=== PATIENT | female | born 1980 | race Caucasian/White ===

== ENCOUNTER → 2016-11-17 | Outpatient (CLI) | payer MEDICAID ==
--- NOTE | 2016-11-17 10:03 | RADRPT ---
PROCEDURE: US OB. CLINICAL INDICATION: size and dates TECHNIQUE: Transabdominal views of the pelvis are available for review. COMPARISON: No prior studies are available for comparison. FINDINGS: There is a single intrauterine gestation with the crown-rump length measuring 1.4 cm, corresponding to a gestational age of 7 weeks and 4 days. The heart rate is noted at 163 bpm. The ovaries are normal in size and echogenicity. Normal Doppler flow is identified in both ovaries. The right ovary measures 3.2 x 1.9 x 1.7 cm. The left ovary measures 2.9 x 2.2 x 2.6 cm. There is a 2.1 cm simple cyst in the left ovary. There is no free fluid. RPTAT: AA IMPRESSION: Single live intrauterine with an estimated gestational age of 7 weeks and 5 days, based on ultrasound measurements. MARIA E based on ultrasound measurements is 07/02/17. 2.1 cm simple cyst in the left ovary. .Gonzales Cerrato MD, MD Date Time Electronically viewed and signed by .Gonzales Cerrato MD, on 11/17/2016 10:03 .S/
== END | disposition home or self-care (01) ==
LOC: U/S 09:25
PROVIDERS: ATTEND Obstetrics & Gynecology
DX: O26.841 Uterine size-date discrepancy, first trimester (principal); O09.521 Supervision of elderly multigravida, first trimester; Z3A.01 Less than 8 weeks gestation of pregnancy
CPT/HCPCS: 76801

== ENCOUNTER 2017-07-02 09:47 | Inpatient (IN) | payer MEDICAID ==
[~2017-07-02] VITALS: Ht 154.9 cm; Wt 66.7 kg
[2017-07-02] VITALS (7 sets, daily range): BP systolic 97–105; BP diastolic 48–65; PULSE 73–92; RESP 17–20; Ht 154.9 cm; Wt 66.7 kg
[2017-07-02] MEDS ORDERED: TERBUTALINE 1 ML ONE (10:26)
--- NOTE | 2017-07-02 10:31 | RADRPT ---
PROCEDURE: US Pelvis. CLINICAL INDICATION: Evaluate the ascending part. TECHNIQUE: Multiple sonographic images of the pelvis were obtained utilizing a transabdominal tech nique. The images were reviewed on a PACS workstation. COMPARISON: 11/17/2016 FINDINGS: There is a single living intrauterine gestation in breech position. There is active cardiac activity 150 beats per minute There is partial visualization of an anterior, bilobed placenta. The cervix i s not well visualized. There is no obvious previa. Amniotic fluid volume was not documented. No f etal measurements made. IMPRESSION: 1. Single living intrauterine gestation in breech position. 2. Anterior, bilobed placenta. RPTAT: [facility] Physician Galilea Date Time Electronically viewed and signed by Physician Galilea on 07/02/2017 10:31 /
[2017-07-02 10:49] LABS: BASOPHILS % 0.2 % (0.0-2.0); EOSINOPHILS # 0.1 10^3/ul (0.0-0.5); EOSINOPHILS % 0.7 % (0.0-7.0); HEMATOCRIT 34.8 % (37.0-47.0); HEMOGLOBIN 12.4 g/dl (12.0-16.0); LYMPHOCYTES # 1.6 10^3/ul (0.8-2.9); LYMPHOCYTES % 11.1 % (15.0-51.0); MEAN CORPUSCULAR HEMOGLOBIN 32.8 pg (29.0-33.0); MEAN CORPUSCULAR HGB CONC 35.6 g/dl (32.0-37.0); MEAN CORPUSCULAR VOLUME 92.1 fl (82.0-101.0); MEAN PLATELET VOLUME 10.3 fl (7.4-10.4); MONOCYTE # 1.1 10^3/ul (0.3-0.9); MONOCYTES % 7.8 % (0.0-11.0); NEUTROPHILS % 79.6 % (39.0-77.0); PLATELET COUNT 199 10^3/UL (140-415); RED BLOOD COUNT 3.78 10^6/ul (4.20-5.40); RED CELL DISTRIBUTION WIDTH 13.7 % (11.5-14.5); WHITE BLOOD COUNT 14.4 10^3/ul (4.8-10.8)
[2017-07-02] MEDS: LACTATED RINGER'S 1,000 ML IV SCH ×3 (10:50→17:47)
[2017-07-02] MEDS ORDERED: OXYTOCIN 30 UNITS/LR 500 ML IV PRN ×3 (11:00→16:00)
[2017-07-02] MEDS ORDERED: MISOPROSTOL 200 MCG TAB PR PRN ×3 (11:00→16:00)
[2017-07-02] MEDS ORDERED: CEFAZOLIN 2 GM/50 ML (PMX) 50 ML IV SCH (11:00)
[2017-07-02] MEDS ORDERED: TERBUTALINE 1 MG/ML INJ SC ONE (11:00)
[2017-07-02] MEDS ORDERED: OXYTOCIN 30 UNITS/LR 500 ML IV SCH (11:00)
[2017-07-02] MEDS ORDERED: METHYLERGONOVINE 0.2 MG INJ IM PRN ×3 (11:00→16:00)
[2017-07-02] MEDS ORDERED: CARBOPROST 250 MCG INJ IM PRN ×3 (11:00→16:00)
[2017-07-02] MEDS ORDERED: ONDANSETRON 4 MG INJ ONE (11:09)
[2017-07-02] MEDS ORDERED: CITRIC ACID/NA CITRATE 30 ML CUP ONE (11:09)
[2017-07-02] MEDS ORDERED: METOCLOPRAMIDE 10 MG INJ ONE (11:38)
[2017-07-02] MEDS ORDERED: FENTAnyl 50 MCG/ML VIAL ONE (11:38)
[2017-07-02] MEDS ORDERED: PHENYLephrine (100 MCG/ML) 5ML SYG ONE (11:38)
[2017-07-02] MEDS ORDERED: morphine SULFATE/PF (10 MG/10 ML) INJ ONE (11:38)
[2017-07-02] MEDS ORDERED: OXYTOCIN 10 UNIT INJ ONE (11:39)
[2017-07-02 11:58] LABS: INR 0.85; PROTIME 11.6 Sec (12.2-14.2); PT RATIO 0.9
[2017-07-02 12:00] LABS: PARTIAL THROMBOPLASTIN TIME 27.9 Sec (25.0-35.0)
[2017-07-02] MEDS ORDERED: TRIMETHOBENZAMIDE 100 MG/ML VIAL IM PRN ×2 (13:30)
[2017-07-02] MEDS ORDERED: NALOXONE (0.4 MG/ML) INJ IV PRN (13:30)
[2017-07-02] MEDS ORDERED: NALBUPHINE HCL (10 MG/1 ML) INJ IV PRN (13:30)
[2017-07-02] MEDS ORDERED: morphine 4 MG/ML VIAL IV PRN (13:30)
[2017-07-02] MEDS ORDERED: DIPHENHYDRAMINE 50 MG INJ IV PRN ×2 (13:30)
[2017-07-02] MEDS ORDERED: EPHEDrine SULFATE 50 MG/5 ML SYG IV PRN (13:30)
[2017-07-02] MEDS ORDERED: morphine 2 MG INJ IV PRN (13:30)
[2017-07-02] MEDS ORDERED: MIDAZOLAM 1 MG/ML 2 ML INJ IV PRN (13:30)
[2017-07-02] MEDS ORDERED: FENTAnyl 50 MCG/ML VIAL IV PRN ×3 (13:30)
[2017-07-02] MEDS ORDERED: IPRATROPIUM (NEB) 0.5 MG/2.5 ML AMP HHN PRN (13:30)
[2017-07-02] MEDS ORDERED: KETOROLAC 30 MG INJ IV PRN (13:30)
[2017-07-02] MEDS ORDERED: OXYCODONE/ACETAMINOPHEN (5/325) TAB PO PRN ×3 (13:30→16:00)
[2017-07-02] MEDS ORDERED: ZOLPIDEM 5 MG TAB PO PRN (13:30)
[2017-07-02] MEDS ORDERED: hydrALAzine 20 MG INJ IV PRN (13:30)
[2017-07-02] MEDS ORDERED: LABETALOL HCL 20MG INJ IV PRN (13:30)
[2017-07-02] MEDS ORDERED: MEPERIDINE 25 MG INJ IV PRN (13:30)
[2017-07-02] MEDS ORDERED: ONDANSETRON 4 MG INJ IV PRN ×2 (13:30)
[2017-07-02] MEDS ORDERED: ALBUTEROL 0.083% (NEB) 2.5 MG/3 ML AMP HHN PRN (13:30)
[2017-07-02] MEDS ORDERED: HYDROmorphONE (0.2 MG/ML) 10ML SYG IV PRN ×3 (13:30)
--- NOTE | 2017-07-02 13:33 | OPR ---
Operative Report Planned Procedure Procedure date Jul 02, 2017 Procedure(s) Primary section Performed by: CARLOTTA KEBEDE MD Assisting provider: MICHAEL CARPIO MD Anesthesiologist: Sukumar Barnett M.D. Pre-procedure diagnosis Term gestation Her pain Active labor Niecy breech presentation Anesthesia Type: spinal Procedure Description Under satisfactory anaesthesia a Pfannenstiel incision was made two fingerbreadth above and parallel to the symphysis of pubis. Incision was extended laterally to the border of the Recti muscles on either sides. Incision was carried down with sharp and blunt dissection until fascia was reached. Anterior Recti muscle fascia was incised in mid portion and incision extended laterally to the border of skin incision. Fascia was mobilized from muscle superiorly and Recti muscles were from midline using sharp and blunt dissection. Peritoneum was visualized; Avoiding bowel and bladder it was incised . Incision was extended superiorly and inferiorly. Bladder blade was placed. Posterior peritoneum covering the lower segment of the uterus and lower segment of the uterus were incised. Incision was extended laterally to the border of Round Lig. on either sides and baby was delivered via total breech extraction without any difficulty. Amniotic fluid appeared meconium stained. Cord blood was obtained and cord had 3 vessels . Placenta was delivered spontaneously and appeared intact and complete. Intrauterine cavity was rubbed with a laparotomy sponge. Uterine incision was closed in 2 layers using running stitches of No1 Monocryl. Hemostasis appeared secure. Ovaries and Fallopian tubes were within normal limits. Announcing needle, lap sponge and instrument count to be correct abdomen was closed in layers as follows: Peritoneum and Recti muscles with running stitches of 20 Vicryl. Fascia with running stitch of No 1 PDS. Subcutaneous tissue with running stitches of 20 Chromic and skin was closed using Insorp and Dermabond Patient tolerated the procedure well and was transferred to [facility] in good condition. Post-Procedure Post-procedure diagnosis Status post Findings: Live Baby Double footling breech presentation Meconium-stained amniotic fluid Specimen removed: No Complications: None Pt Condition post procedure: stable Disposition: PACU Physician Certification I, the undersigned physician, hereby certify that I have discussed the procedure described in this consent form with this patient (or the patient's legal veterans service representative), including: * The risk and benefits of the procedure; * Any adverse reactions that may reasonably be expected to occur; * Any alternative efficacious methods of treatment which may be medically viable ; * The potential problems that may occur during recuperation; * Potential for blood transfusion and associated risks/benefits; and * Any research or economic interest I may have regarding this treatment. I further certify that the patient/legally responsible person was encouraged to ask question and that all questions were answered. CARLOTTA KEBEDE MD Jul 02, 2017 13:33
--- NOTE | 2017-07-02 13:36 | HP ---
Date/Time of Note Date/Time of Note DATE: 07/02/17 TIME: 13:33 OB - History Hx of Present Free Text/Dictation Admitted in sensation at term Chief Complaint: Other pains Last Menstrual Period: Sep 25, 2016 Estimated Due Date: Jul 02, 2017 : 3 Para: 2 Care: Good Care Past Family/Social History * Past Medical, Surgical, Family and Obstetric Histories reviewed from chart. Blood Type: O+ Rubella: immune RPR/VDRL: Negative GBS Status: Negative HBsAG: Negative OB Admission Exam Vital Signs Vital Signs Vital Signs Date Time Temp Pulse Resp B/P Pulse Ox O2 Delivery O2 Flow Rate FiO2 07/02/17 10:04 98.1 92 18 105/65 Physical Exam HEENT: WNL Heart: Rhythm Normal Lungs: Clear, Equal Abdomen: WNL Extremities: Normal Reflexes: Normal Cervical Dilatation: 5cm Effacement: 100% Station: -3 Membranes: Intact Heart Rate: 130's Accelerations: Accelerations Present Decelerations: No Decelerations Varibility: Marked Contractions on Admission: < 5 Minutes Apart Date/Time Contractions Began: 2016 7:00 AM Frequency of Contractions: Every 5 minutes Duration: Over 60 seconds Intensity: Moderate Last 72 hours Lab Results CBC & BMP 07/02/17 10:30 OB Assessment/Plan Reason for admission: active labor Other Assessment: Breech presentation Term gestation Other plan: Proceed with primary section CARLOTTA KEBEDE MD Jul 02, 2017 13:36
[2017-07-02] MEDS ORDERED: ONDANSETRON 4 MG INJ IV STA (15:45)
[2017-07-02] MEDS ORDERED: CITRIC ACID/NA CITRATE 30 ML CUP PO ONE (15:45)
[2017-07-02] MEDS ORDERED: LANOLIN 7 GM TUBE TOP PRN (16:00)
[2017-07-02] MEDS ORDERED: NA PHOSPHATE/BIPHOS 133 ML ENEMA PR PRN (16:00)
[2017-07-02] MEDS ORDERED: HYDROCODONE/APAP (5/325) TAB PO PRN (16:00)
[2017-07-02] MEDS: CEFAZOLIN 2 GM/50 ML (PMX) 50 ML IV SCH ×2 (16:38→23:41)
[2017-07-02] MEDS: CLINDAMYCIN 300 MG CAP PO SCH ×2 (17:56→23:41)
[2017-07-02] MEDS: SENNA/DOCUSATE NA (8.6MG/50MG) TAB PO SCH (21:23)
[2017-07-03] MEDS: LACTATED RINGER'S 1,000 ML IV SCH ×2 (01:54→10:07)
[2017-07-03 04:05] VITALS: BP 81/49; PULSE 96; RESP 18
[2017-07-03] MEDS: CLINDAMYCIN 300 MG CAP PO SCH ×4 (05:35→23:32)
[2017-07-03 07:35] VITALS: BP 95/51; PULSE 95; RESP 20
[2017-07-03] MEDS: CEFAZOLIN 2 GM/50 ML (PMX) 50 ML IV SCH (08:14)
[2017-07-03] MEDS: SENNA/DOCUSATE NA (8.6MG/50MG) TAB PO SCH ×2 (08:14→21:27)
[2017-07-03 09:12] LABS: BASOPHILS % 0.4 % (0.0-2.0); EOSINOPHILS # 0.1 10^3/ul (0.0-0.5); EOSINOPHILS % 1.2 % (0.0-7.0); HEMATOCRIT 28.8 % (37.0-47.0); LYMPHOCYTES # 1.8 10^3/ul (0.8-2.9); LYMPHOCYTES % 18.9 % (15.0-51.0); MEAN CORPUSCULAR HEMOGLOBIN 32.7 pg (29.0-33.0); MEAN CORPUSCULAR HGB CONC 34.7 g/dl (32.0-37.0); MEAN CORPUSCULAR VOLUME 94.1 fl (82.0-101.0); MEAN PLATELET VOLUME 10.4 fl (7.4-10.4); MONOCYTE # 0.9 10^3/ul (0.3-0.9); MONOCYTES % 9.1 % (0.0-11.0); NEUTROPHILS % 70.1 % (39.0-77.0); PLATELET COUNT 190 10^3/UL (140-415); RED BLOOD COUNT 3.06 10^6/ul (4.20-5.40); RED CELL DISTRIBUTION WIDTH 14.2 % (11.5-14.5); WHITE BLOOD COUNT 9.7 10^3/ul (4.8-10.8)
[2017-07-03 12:05] VITALS: BP 94/55; PULSE 93; RESP 16
[2017-07-03] MEDS: IBUPROFEN 800 MG TAB PO SCH ×2 (13:05→21:30)
[2017-07-03] MEDS ORDERED: BISACODYL 10 MG SUPP PR ONE (15:00)
[2017-07-03 16:09] VITALS: BP 94/58; PULSE 84; RESP 18
--- NOTE | 2017-07-03 18:19 | PN ---
Date/Time of Note Date/Time of Note DATE: 07/03/17 TIME: 18:18 Assessment/Plan VTE Prophylaxis VTE Prophylaxis Intervention: ambulation Lines/Catheters IV Catheter Type (from Nrsg): Peripheral IV Assessment/Plan Assessment/Plan Status post postop day 1 We will advance diet and ambulate New to monitor vital signs To new with supportive measures Subjective 24 Hr Interval Summary No bowel movement Seen flatus Constitutional: BM, ambulates, flatus, improved, no complaints, urine output Pain Control: well controlled Exam/Review of Systems Vital Signs Vitals Vital Signs Date Time Temp Pulse Resp B/P Pulse Ox O2 Delivery O2 Flow Rate FiO2 07/03/17 16:09 98.5 84 18 94/58 Room Air Intake and Output 07/02/17 07/02/17 07/03/17 14:59 22:59 06:59 Intake Total 50 ml 1550 ml Output Total 1200 ml 1800 ml Balance -1150 ml -250 ml Exam Free Text/Dictation Abdomen is soft, bowel sounds are present Abdomen is tender around the incision Incision is covered Constitutional: alert, oriented, well developed Psych: nl mood/affect, no complaints Head: atraumatic, normocephalic Eyes: EOMI, nl conjunctiva, nl lids, nl sclera ENMT: mucosa pink and moist, nl external ears & nose, nl lips & teeth, nl nasal mucosa & septum Neck: non-tender, supple Respiratory: clear to auscultation, normal air movement Cardiovascular: nl pulses, regular rate and rhythm Gastrointestinal: nl liver, spleen, non-tender, soft Drains None Musculoskeletal: nl extremities to inspection, nl gait and stance Extremities: normal pulses Neurological: DATA SPECIALIST II-XII intact, nl mental status, nl speech, nl strength Skin: nl turgor, rash or lesions Lymph: nl lymph nodes Results Result Diagram: 07/03/17 0810 CARLOTTA KEBEDE MD Jul 03, 2017 18:19
[2017-07-03 19:55] VITALS: BP 88/59; PULSE 88; RESP 18
[2017-07-04 04:00] VITALS: BP 88/52; PULSE 78; RESP 20
[2017-07-04] MEDS: CLINDAMYCIN 300 MG CAP PO SCH ×3 (05:34→18:10)
[2017-07-04] MEDS: IBUPROFEN 800 MG TAB PO SCH ×3 (05:34→22:13)
[2017-07-04 08:00] VITALS: BP 109/55; PULSE 86; RESP 18
[2017-07-04] MEDS: SENNA/DOCUSATE NA (8.6MG/50MG) TAB PO SCH ×2 (09:51→20:50)
--- NOTE | 2017-07-04 15:23 | DS ---
Date/Time of Note Date/Time of Note Home next day DATE: 07/04/17 TIME: 15:21 Obstetrical Discharge Record Final Diagnosis Final Diagnosis: Term delivered Other Final Diagnosis Status post for breech presentation Section Section: Primary Primary Indication Breech presentation in labor Condition on Discharge Physical Assessment Last Vitals: See nurse's notes Voiding: Yes Bowel Movement: Yes Breast: Soft, non-tender, Filling Fundus: Firm Abdomen and Incision: Abdomen is soft Sounds are present Abdomen is not distended Slightly tender around incision Incision is healing well Incision has no drainage erythema or induration Episiotomy: Not applicable Calf Tenderness: No Patient Condition: Good CARLOTTA KEBEDE MD Jul 04, 2017 15:23
--- NOTE | 2017-07-04 15:25 | DS ---
Date/Time of Note Date/Time of Note DATE: 07/04/17 TIME: 15:23 Discharge Summary Admission/Discharge Info Admit Date/Time Jul 02, 2017 at 10:15 Discharge Date/Time July 05, 2017 Discharge Diagnosis Status post primary Patient Condition: Good Procedures Primary delivery Hx of Present Illness 37-year-old female underwent primary section for breech presentation at term in labor Hospital Course Uncomplicated Follow-up Plan With following clinic within a week Primary Care Provider Care Physician No Primary Time spent on discharge: > 30 minutes CARLOTTA KEBEDE MD Jul 04, 2017 15:25
[2017-07-04] MEDS ORDERED: IBUP800T25 PO (15:27)
--- NOTE | 2017-07-04 15:27 | PD.PPDC ---
[employer] Discharge Instruction Provider Information Physician Information 37-year-old female underwent primary delivery for breech presentation at term in labor Diagnosis Final Diagnosis: Status post Condition Patient Condition: Good Diet Diet: Resume Regular Diet Activity/Restrictions Activity: May Shower Restrictions: No Exercising No Lifting Nothing in the Vagina Return to Work or School: Sep 07, 2017 Wound/Drain Care Instructions Wound/Drain Care Instructions: Keep clean and dry Follow-up Follow-up with Physician: 1, Week/Weeks (In clinic for follow-up) Return to clinic for [employer]OC[employer]ELOPER Instructions: Fever greater than 101 Chills OB Instructions: Breast Tenderness Depression Comment: Pelvic rest 6 weeks Surgical Instructions: Incisional Drainage Incisional Redness Comment: No hard activity for 2 months CARLOTTA KEBEDE MD Jul 04, 2017 15:27
[2017-07-04 16:30] VITALS: BP 106/52; PULSE 75; RESP 16
[2017-07-04 20:00] VITALS: BP 103/53; PULSE 86; RESP 20
[2017-07-05] MEDS: CLINDAMYCIN 300 MG CAP PO SCH ×3 (00:01→11:38)
[2017-07-05 04:00] VITALS: BP 96/55; PULSE 75; RESP 20
[2017-07-05] MEDS: IBUPROFEN 800 MG TAB PO SCH (05:48)
[2017-07-05 08:00] VITALS: BP 108/59; PULSE 83; RESP 19
[2017-07-05] MEDS ORDERED: DIPHTH/TET/ACEL PERTUSS (ADULT) 0.5 ML VIAL IM* ONE (09:00)
[2017-07-05] MEDS: SENNA/DOCUSATE NA (8.6MG/50MG) TAB PO SCH (09:36)
== END 2017-07-05 13:30 | disposition home or self-care (01) | DRG 766 ==
LOC: OBT 09:47 → L-D 09:47 → OBT 10:18 → L-D 12:12 → PP1 15:47
PROVIDERS: ADMIT Obstetrics & Gynecology; ATTEND Obstetrics & Gynecology
PROC: 3E033VJ Introduction of Other Hormone into Peripheral Vein, Percutaneous Approach (ICD-10-PCS; 2017-07-02)
PROC: 10D00Z1 Extraction of Products of Conception, Low, Open Approach (ICD-10-PCS; principal; 2017-07-02 13:15)
DX: O48.0 Post-term pregnancy (principal); O32.1XX0 Maternal care for breech presentation, not applicable or unspecified; Z3A.40 40 weeks gestation of pregnancy; Z37.0 Single live birth
CPT/HCPCS: 76815; 85025; 85610; 85730; 86592; 86850; 86900; 86901; 87340; 90715; 99464; G0463; J0690; J1885; J2274; J2370; J2405; J2590; J2765; J3010; J3105; J7120